=== PATIENT | female | born 1965 | race Caucasian/White ===

== ENCOUNTER 2018-02-27 15:02 | Emergency (ER) | payer OTHER ==
[2017-01-09 14:04] VITALS: Wt 77.1 kg
[~2018-02-27 15:02] MED LIST: AMLO2.5T76 PO; AMOX-559 PO; BIAXIN; DOCU-416 PO; GARL10005 PO; IBUP800T37 PO; LISI-362 PO; MULT-19 PO; OXYC-865 PO
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
[2018-02-27 16:33] VITALS: BP 153/84
== END 2018-02-27 16:33 | disposition home or self-care (01) ==
LOC: ER 15:16
DX: S00.03XA Contusion of scalp, initial encounter (principal); Y04.2XXA Assault by strike against or bumped into by another person, initial encounter
CPT/HCPCS: 70450; 99284

== ENCOUNTER 2018-08-01 14:07 | Emergency (ER) | payer OTHER ==
[2017-01-09 14:04] VITALS: Wt 70.3 kg
[~2018-08-01 14:07] MED LIST changes: -AMLO2.5T76 PO; +AMLO2.5T78 PO
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
[2018-08-01] MEDS ORDERED: AMOX-559 PO (15:30)
[2018-08-01] MEDS ORDERED: BACI28.415 TP (15:30)
[2018-08-01 16:04] VITALS: BP 149/94
== END 2018-08-01 16:20 | disposition home or self-care (01) ==
LOC: ER 14:30
DX: S51.812A Laceration without foreign body of left forearm, initial encounter (principal); S61.411A Laceration without foreign body of right hand, initial encounter; S81.811A Laceration without foreign body, right lower leg, initial encounter; W55.03XA Scratched by cat, initial encounter
CPT/HCPCS: 99283